=== PATIENT | male | born 1965 | race Two or more races ===

== ENCOUNTER 2022-10-11 03:21 | Emergency (ER) | payer OTHER ==
[2022-10-11] MEDS ORDERED: Sodium Chloride 0.9% 1,000 ML IV ONE (03:23)
[2022-10-11] MEDS ORDERED: HYDROmorphone 1 MG/ML Syringe IVPUSH ONE ×3 (03:32→07:21)
[2022-10-11 04:35] LABS: BASOPHILS PERCENT AUTO 0.2 % (0.0-1.5); EOSINOPHILS ABSOLUTE AUTO 0.1 K/uL (0.0-0.7); HEMATOCRIT 32.6 % (38.0-50.0); HEMOGLOBIN 10.7 g/dL (13.0-17.0); LYMPHOCYTES ABSOLUTE AUTO 1.7 K/uL (0.6-2.4); LYMPHOCYTES PERCENT AUTO 12.8 % (16.0-40.0); MEAN CORPUSCULAR HEMOGLOBIN 27.2 pg (27.0-32.0); MEAN CORPUSCULAR HGB CONC 32.8 g/dL (31.0-37.0); MONOCYTES ABSOLUTE AUTO 1.1 K/uL (0.0-0.8); MONOCYTES PERCENT AUTO 8.1 % (0.0-15.0); NEUTROPHILS ABSOLUTE AUTO 10.1 K/uL (1.4-5.7); NEUTROPHILS PERCENT AUTO 77.9 % (48.0-80.0); PLATELET COUNT,PLT 562 K/uL (150-400); RED BLOOD CELL COUNT 3.93 M/uL (4.50-5.90); WHITE BLOOD CELL COUNT,WBC 13.01 K/uL (4.0-11.0)
[2022-10-11 04:45] LABS: INR 1.01 (0.86-1.11); PTT,PARTIAL THROMBOPLSTIN TIME 28.2 SEC (23.9-30.7)
[2022-10-11 04:58] LABS: A/G RATIO 0.7 (0.9-1.6); ALANINE AMINOTRANSFERASE,ALT 43 IU/L (14-63); ALBUMIN 2.8 g/dL (3.4-5.0); ALKALINE PHOSPHATASE 135 U/L (46-116); ASPARTATE AMNIOTRANSFERASE,AST 37 IU/L (15-37); BILIRUBIN TOTAL 0.6 mg/dL (0.2-1.0); BLOOD UREA NITROGEN,BUN 18 mg/dL (7.0-18.0); CALCIUM 8.3 mg/dL (8.5-10.1); CARBON DIOXIDE,CO2 27.9 mmol/L (21.0-32.0); CHLORIDE,CL 102 mmol/L (98-107); CREATININE 0.9 mg/dL (0.8-1.3); EST CRCL DRUG DOSING (CG) 96.45 mL/min; ESTIMATED GFR 100 mL/min (>60); ETHANOL BLOOD MEDICAL < 3.0 mg/dL; GLUCOSE RANDOM 150 mg/dL (74-106); LIPASE 180 U/L (73-393); MAGNESIUM 1.5 mg/dL (1.8-2.4); POTASSIUM,K 3.7 mmol/L (3.5-5.1); PROTEIN TOTAL,TP 7.1 g/dL (6.4-8.2); SODIUM,NA 137 mmol/L (136-148)
[2022-10-11] MEDS ORDERED: Iopamidol 755 MG/ML 500 ML Multipack Bottle IVPUSH ONE (05:21)
== END 2022-10-11 09:00 ==
LOC: MW.ED 03:21
DX: S02.113A Unspecified occipital condyle fracture, initial encounter for closed fracture (principal); V49.9XXA Car occupant (driver) (passenger) injured in unspecified traffic accident, initial encounter; Y92.410 Unspecified street and highway as the place of occurrence of the external cause
CPT/HCPCS: 36415; 70450; 71260; 72125; 73502; 73560; 73590; 80053; 80307; 83690; 83735; 84484; 85025; 85610; 85730; 93005; 96361; 96374; 96376; 99285; J1170; J7030; Q9967